=== PATIENT | male | born 1960 | race Caucasian/White ===

== ENCOUNTER 2020-01-12 05:55 | Day surgery (SDC) | payer BC ==
[~2020-01-12] VITALS: Ht 182.9 cm; Wt 82.7 kg
[2020-01-12] MEDS ORDERED: SODIUM CHLORIDE 0.9% 1,000 ML IV SCH ×2 (06:14→06:30)
[2020-01-12 06:24] VITALS: BP 118/86
[2020-01-12] MEDS ORDERED: APIX5TAB PO (06:31)
[2020-01-12 06:57] LABS: BASOPHILS % (AUTO) 1 % (0-1); EOSINOPHILS % (AUTO) 4 % (1-7); LYMPHOCYTES % (AUTO) 43 % (22-44); MEAN CORPUSCULAR HEMOGLOBIN 31.4 pg (27.5-34.5); MEAN CORPUSCULAR HGB CONC 33.8 g/dL (33.2-36.2); MEAN PLATELET VOLUME 8.2 fL (7.4-10.4); MONOCYTES % (AUTO) 10 % (2-9); NEUTROPHILS % (AUTO) 42 % (42-75); PLATELET COUNT 230 x10^3/uL (130-400); RED BLOOD COUNT 5.29 x10^6/uL (4.38-5.82); RED CELL DISTRIBUTION WIDTH 13.1 % (9.4-14.8)
[2020-01-12 07:08] LABS: ALANINE AMINOTRANSFERASE 30 U/L (12-78); ALBUMIN 3.7 g/dL (3.4-5.0); ANION GAP 5 mmol/L (5-15); CHLORIDE 113 mmol/L (98-107); CREATININE 1.14 mg/dL (0.7-1.3)
[2020-01-12 07:10] LABS: ALKALINE PHOSPHATASE 59 U/L (45-117); BILIRUBIN,TOTAL 0.5 mg/dL (0.2-1.0); TOTAL PROTEIN 6.6 g/dL (6.4-8.2)
[2020-01-12 07:13] LABS: MD NO
[2020-01-12] MEDS ORDERED: MIDAZOLAM 1 MG/ML, 5ML ONE ×2 (07:52→07:56)
[2020-01-12] MEDS ORDERED: FENTANYL PF 100 MCG/2ML ONE ×2 (07:52→07:56)
[2020-01-12] MEDS ORDERED: ADENOSINE 6 MG/2 ML ONE (07:53)
[2020-01-12] MEDS ORDERED: LIDOCAINE 2%, 20ML ONE (07:53)
[2020-01-12] MEDS ORDERED: PROPOFOL 10 MG/ML, 20ML ONE (07:53)
[2020-01-12] MEDS ORDERED: ISOPROTERENOL 0.2MG/ML, 5ML ONE (07:53)
[2020-01-12] MEDS ORDERED: APIXABAN 5 MG TABLET PO SCH (21:00)
== END 2020-01-12 14:12 | disposition home or self-care (01) ==
LOC: CACL 05:55
PROVIDERS: ATTEND Internal Medicine Cardiovascular Disease
DX: I48.92 Unspecified atrial flutter (principal); Z20.828 Contact with and (suspected) exposure to other viral communicable diseases; I34.0 Nonrheumatic mitral (valve) insufficiency; Z79.01 Long term (current) use of anticoagulants
CPT/HCPCS: 36415; 71046; 80053; 85025; 87635; 93312; 93321; 93325; 93613; 93653; 99156; 99157; C1730; C1732; C1894; J0153; J2250; J2704; J3010